=== PATIENT | female | born 1950 | race Caucasian/White ===

== ENCOUNTER → 2021-03-12 | Outpatient (CLI) | payer MEDICARE, OTHER ==
[~2021-03-12] MED LIST: ASPIRIN EC81 MG PO; ATORVASTATIN CA20 MG PO; LOPRESSOR 25 MG25 MG PO; MICROZIDE12.5 MG PO; MOBIC15 MG PO; NITROGLYCERIN0.4 MG SL; PANTOPRAZOLE SO40 MG PO; VISTARIL25 MG PO
== END ==
LOC: KOH-I 13:00
DX: M47.26 Other spondylosis with radiculopathy, lumbar region (principal); M47.27 Other spondylosis with radiculopathy, lumbosacral region
CPT/HCPCS: 72148